=== PATIENT | male | born 1955 | race Caucasian/White ===

== ENCOUNTER → 2023-01-12 11:48 | Outpatient (CLI) | payer MEDICARE, SELFPAY ==
--- NOTE | 2023-01-12 11:53 | DI.MRI.S_ITS ---
PROCEDURE: MR SHOULDER RT WO CON INDICATIONS: Unspecified rotator cuff tear or rupture of right TECHNIQUE: Noncontrast oblique coronal T2 fast spin echo with fat saturation, oblique sagittal T1 spin echo and T2 fast spin echo with fat saturation, axial T1 spin echo and T2 fast spin echo with fat saturation through the shoulder. COMPARISON: None. FINDINGS: Image quality: There are motion artifacts. Rotator cuff: There is high-grade partial-thickness tear of the supraspinatus, infraspinatus and subscapularis tendons from the musculotendinous junction to the footprint. There may be pinhole perforation of the distal supraspinatus tendon at the footprint. There is mild teres minor tendinosis. Sagittal images demonstrate mild teres minor muscle atrophy. No deltoid muscle atrophy. Bones and bursae: No bone marrow contusions or fractures. There is moderate acromioclavicular and glenohumeral joint degeneration. The acromion demonstrates conventional anatomy, without an os acromiale. There is small glenohumeral joint effusion. Capsule and soft tissues: There is tear of the anterior superior labrum involving the biceps anchor. The intra-articular portion of the long head of the biceps tendon is not visualized, likely torn. The rotator interval appears normal, without fibrosis. The coracohumeral ligament is normal in thickness. IMPRESSION: 1. High-grade partial-thickness tear of the supraspinatus, infraspinatus and subscapularis tendons. No supraspinatus, infraspinatus or subscapularis muscle atrophy. 2. Mild teres minor tendinosis. There is mild teres minor muscle atrophy. 3. Moderate acromioclavicular and glenohumeral joint degeneration. 4. Superior labral tear involving the biceps anterior. 5. Tear of the long head of the biceps tendon. The intra-articular portion of the long head of the biceps tendon is not visualized, likely due to tendon retraction. 6. Small glenohumeral joint effusion Dictated by: David Del Cid M.D. on 01/13/2023 at 11:13 Approved by: David Del Cid M.D. on 01/13/2023 at 11:35
== END ==
PROVIDERS: Referring Provider Orthopaedic Surgery; Visit Provider Orthopaedic Surgery
DX: M75.111 Incomplete rotator cuff tear or rupture of right shoulder, not specified as traumatic (principal); M19.011 Primary osteoarthritis, right shoulder; S43.491A Other sprain of right shoulder joint, initial encounter; S46.111A Strain of muscle, fascia and tendon of long head of biceps, right arm, initial encounter; M62.511 Muscle wasting and atrophy, not elsewhere classified, right shoulder; M25.411 Effusion, right shoulder
CPT/HCPCS: 73221

== ENCOUNTER → 2023-02-28 12:52 | Outpatient (CLI) | payer MEDICARE, SELFPAY ==
--- NOTE | 2023-02-28 | DI.MRI.S_ITS ---
PROCEDURE: MR LUMBAR SPINE WO CON INDICATIONS: POST LAMINECTOMY SYNDROME TECHNIQUE: Noncontrast sagittal T1 spin echo and T2 fast echo, sagittal STIR, and T2 fast spin echo through the lumbar spine. In cases with scoliosis, additional coronal T2 fast spin echo may be performed. COMPARISON: None. FINDINGS: Image quality: Excellent. Alignment and Curvature: Trace retrolisthesis of L1 on L2. Remote multilevel lumbar fusion and posterior decompressive laminectomy. Posterior lateral andrea and pedicle screw fixation of L2 through S1, posterior laminectomy at least from L3 through S1, interbody disc spacers at L2-L3, L4-L5, and L5-S1, as well as anterior fusion at L5-S1. Bone Marrow: Marrow is of normal overall signal. No acute vertebral body compression fractures. Spinal Cord: Conus medullaris terminates at the L1 level. Visualized cord demonstrates normal signal and size. Paraspinous Soft Tissues: No paravertebral masses. T12-L1: Disc bulge with mild right paracentral disc protrusion. No significant canal stenosis. No significant foraminal stenosis. Facet hypertrophy. L1-L2: Disc height loss. Trace retrolisthesis of L1 on L2. Disc bulge. Facet hypertrophy. Mild canal stenosis. Rynb-dz-dcicodyy right foraminal stenosis. L2-L3: No canal stenosis or foraminal stenosis. L3-L4: No canal stenosis. No significant foraminal stenosis. L4-L5: No canal stenosis. No significant foraminal stenosis. L5-S1: No canal stenosis or foraminal stenosis. IMPRESSION: 1. Extensive multilevel lumbar fusion and posterior decompression with no canal stenosis or significant foraminal stenosis at the surgical levels. 2. At L1-L2, the level above the fusion, there is mild canal stenosis. 3. There is a mild right paracentral disc protrusion at T12-L1 of uncertain clinical significance. 4. Facet arthropathy at T12-L1 and L1-L2. Dictated by: Stephen Sow M.D. on 02/28/2023 at 15:00 Approved by: Stephen Sow M.D. on 02/28/2023 at 15:14
--- NOTE | 2023-02-28 | DI.MRI.S_ITS ---
PROCEDURE: MR THORACIC SPINE WO CON INDICATIONS: POST LAMINECTOMY SYNDROME TECHNIQUE: Noncontrast sagittal T1 spine echo and T2 fast spin echo, sagittal STIR, and T2 fast spin echo through the thoracic spine. COMPARISON: [facility], , MR LUMBAR SPINE WO CON, 02/28/2023, 13:01. FINDINGS: Image quality: Excellent. Alignment and Curvature: Accentuated thoracic kyphosis is seen. No focal AP alignment abnormality is seen. Bone Marrow: Marrow is of normal overall signal. No acute vertebral body compression fractures. Several midthoracic anterior wedge deformities are seen, without acute features. The most prominent of these is seen at T8, with approximately 40% loss of height anteriorly. Scattered foci are seen, which are hyperintense on T1-weighted and T2-weighted imaging, which are most consistent with benign vertebral body hemangiomas. Spinal Cord: Visualized spinal cord is normal in size and signal. Paraspinous Soft Tissues: No paravertebral masses. Miscellaneous: At the T6-T7 level, there is a central/right disc protrusion, as on series 9, image 27 and on series 6, image 8. Minimal central canal narrowing is seen. No neural foraminal narrowing can be seen at this level. Mild central canal narrowing can be seen at T7-T8. No neural foraminal narrowing is seen. Minimal central canal narrowing is seen at T8-T9. At T9-T10, there is a mild central/left disc protrusion, with mild central canal narrowing and minimal mass effect upon the ventral spinal cord. At T10-T11, there is mild generalized disc bulge seen, with a mild central disc protrusion. Mild central canal narrowing is seen at this level. Moderate neural foraminal narrowing can be seen at this level. At T11-T12, there is no significant central canal narrowing. Moderate bilateral neural foraminal narrowing can be seen. At T12-L1, there is moderate generalized disc bulge, with a central disc protrusion. Moderate central canal narrowing is seen. Moderate bilateral neural foraminal narrowing is seen. Milder degenerative changes are seen elsewhere. IMPRESSION: Multiple levels of thoracic spine degenerative change can be seen, which are worst inferiorly. Chronic, remote mode midthoracic anterior wedge deformities are seen, with associated accentuated thoracic kyphosis. Dictated by: Ayan Sherwood M.D. on 02/28/2023 at 17:33 Approved by: Ayan Sherwood M.D. on 02/28/2023 at 17:37
== END ==
PROVIDERS: Referring Provider Physician Assistant; Visit Provider Physician Assistant
DX: M96.1 Postlaminectomy syndrome, not elsewhere classified (principal); M48.061 Spinal stenosis, lumbar region without neurogenic claudication; M51.25 Other intervertebral disc displacement, thoracolumbar region; M47.815 Spondylosis without myelopathy or radiculopathy, thoracolumbar region; M47.816 Spondylosis without myelopathy or radiculopathy, lumbar region; Z98.1 Arthrodesis status
CPT/HCPCS: 72146; 72148

== ENCOUNTER → 2024-07-12 08:49 | Outpatient (CLI) | payer MEDICARE, SELFPAY ==
--- NOTE | 2024-07-12 08:52 | DI.RAD.S_ITS ---
PROCEDURE: XR THORACIC SPINE 2V INDICATIONS: RIB PAIN TECHNIQUE: 2 views of the thoracic spine were acquired. COMPARISON: None. FINDINGS: Bones: Chronic appearing compression deformity of T8 through T12, without endplate retropulsion. No dislocations. No suspicious bony lesions. 12 pairs of ribs are noted, and appear intact where visualized. Diffuse idiopathic skeletal hyperostosis. Moderate, multilevel degenerative disc disease. Soft tissues: No paravertebral stripe thickening. IMPRESSION: Moderate, multilevel degenerative disc disease. Chronic appearing compression deformities of the lower thoracic spine. Dictated by: Yo Goodwin M.D. on 07/12/2024 at 12:05 Approved by: Yo Goodwin M.D. on 07/12/2024 at 13:05
--- NOTE | 2024-07-12 08:52 | DI.RAD.S_ITS ---
PROCEDURE: XR LUMBAR SPINE MIN 4V INDICATIONS: BACK PAIN TECHNIQUE: 5 views of the lumbar spine acquired, including oblique views. COMPARISON: [facility], MR, MR LUMBAR SPINE WO CON, 02/28/2023, 13:01. FINDINGS: Bones: 5 nonrib-bearing vertebrae are present. Posterior and interbody surgical fusion of L2 through S1. No hardware complication. Grade 1 retrolisthesis of L1 on L2. Moderate to severe disc height loss at the thoracolumbar levels. Vertebral body height loss of T11 and T12. Soft tissues: Overlying bowel gas pattern is normal. No suspicious soft tissue calcifications. IMPRESSION: Posterior and interbody surgical fusion of the lumbosacral spine, without hardware complication. Dictated by: Yo Goodwin M.D. on 07/12/2024 at 11:55 Approved by: Yo Goodwin M.D. on 07/12/2024 at 12:05
== END ==
PROVIDERS: Referring Provider Physical Medicine & Rehabilitation; Visit Provider Physical Medicine & Rehabilitation
DX: M51.34 Other intervertebral disc degeneration, thoracic region (principal); M43.8X4 Other specified deforming dorsopathies, thoracic region; M43.16 Spondylolisthesis, lumbar region; M53.3 Sacrococcygeal disorders, not elsewhere classified; R07.81 Pleurodynia; M54.9 Dorsalgia, unspecified; Z98.1 Arthrodesis status; Z98.890 Other specified postprocedural states
CPT/HCPCS: 72072; 72110; 99214

== ENCOUNTER 2024-08-03 10:33 | Outpatient (CLI) | payer MEDICARE, SELFPAY ==
[2024-08-03] VITALS (8 sets, daily range): BP systolic 131–172; BP diastolic 60–79; PULSE 63–72; RESP 12–23; TEMP 36.7; O2SAT 95–98
--- NOTE | 2024-08-03 10:34 | DI.RAD.S_ITS ---
PROCEDURE: PAIN SI JOINT INJECTION [place] INDICATIONS: Bilateral SI joint injections COMPARISON: None. FINDINGS/IMPRESSION: Fluoroscopic spot filming was performed to verify placement of spinal needles at the bilateral sacroiliac joints, as labeled on the films. Appropriate location(s) of the needle tip(s) was confirmed by injection of iodinated contrast. Dictated by: Erasto Beltran M.D. on 08/03/2024 at 15:11 Approved by: Erasto Beltran M.D. on 08/03/2024 at 15:13
[2024-08-03] MEDS: MIDAZOLAM 2 MG/2 ML VIAL IV (12:06)
[2024-08-03] MEDS: BUPIVACAINE 0.5% (PF) 10 ML VIAL 5 ML INJ (12:12)
[2024-08-03] MEDS: BETAMETHASONE 30 MG/5 ML MDV 12 MG INJ (12:12)
[2024-08-03] MEDS: iopamidoL 15 ML VIAL 3 ML INJ (12:13)
--- NOTE | 2024-08-03 12:27 | P.PCN_ITS ---
Date/Time/Diagnoses Date of procedure: 08/03/24 Time of procedure: 12:28 Pre-procedure diagnosis: Sacroiliac joint pain/DJD Post-procedure diagnosis: same Procedure Notes Procedure: Fluoroscopic guided contrast controlled bilateral sacroiliac joint injection Indications: Ronnie is referred by Dr. Kelley for treatment of bilateral sacroiliac joint DJD Physician: Marcello Valdez Total Fluoroscopy time (seconds): 19 Total sedation minutes: 20 Complications: none Procedure in detail & Post-procedure care: Description of procedure Fluoroscopic guided, contrast controlled bilateral sacroiliac joint injection Following review of allergies and review of potential side effects and complications, including, but not necessarily limited to, infection, allergic reaction, local tissue breakdown, temporary as well as permanent nerve injury, paralysis, stroke and possible , the patient indicated that they understood and agreed to proceed. An informed consent was signed by the patient, witnessed by a nurse, and placed in the patient's chart. Additionally, other treatment options including modalities, medications, and physical therapy were reviewed with the patient. After review of previous anaesthesic history and IV conscious sedation the patient was deemed safe to proceed with today?s procedure with IV conscious sedation as ASA class II designation. Safety time-out was performed to confirm patient ID, procedure to be performed and site of procedure. IV sedation was accomplished with a combination of 2mg Versed were administered by the RN after DO order, titrated to patient comfort during the course of the procedure while the patient remained responsive to all verbal commands In the prone position following sterile prep and drape of the pelvic region, the hyper lucency on in the inferior aspect of the sacroiliac joint was identified fluoroscopically the skin was anesthetized be a 25 gauge 1.5 inch needle with approximately 2cc of 1% lidocaine solution. At this point, a 22 gauge 3 in sp inal needle was atraumatically introduced and advanced under fluoroscopic guidance into the inferior aspect of the right sacroiliac joint. Following negative aspiration, approximately 0.3cc of Isovue-300 was injected confirming intra-articular placement without vascular uptake. Radiographic data, including multiple fluoroscopic views of the pelvis, reveals a spinal needle in the sacroiliac joint hyper lucent zone. Subsequent view show flow contrast tear superiorly and inferiorly within the joint capsule without vascular intrathecal uptake. At this point a total of 1cc of 0.5% Marcaine was combined with 1cc of 6mg of betamethasone was injected without incident. Attention was then refocused the left sacroiliac joint where the procedure was replicated. The procedure tolerated the procedure well without signs or symptoms of complications prior to transfer to the recovery area continued monitoring without incident. The patient was then transferred to the recovery area with a bur observed for an appropriate time after the injection. The patient reverted a vas score of 7 prior to the procedure and post-procedure vas of 1. Postop instructions The patient was provided with a pain like to continue to record the patient's response to the target specific procedure prior to the patient's follow-up visit with the referring physician. Additionally, specific post injection care instructions and a contact number to our office were provided if concerns arise regarding the possible complications associated with procedure are suspected.
== END 2024-08-03 12:36 | disposition home or self-care (01) ==
PROVIDERS: PCP Family Medicine; Referring Provider Physical Medicine & Rehabilitation; Visit Provider Physical Medicine & Rehabilitation
DX: M53.3 Sacrococcygeal disorders, not elsewhere classified (principal); Z98.890 Other specified postprocedural states
CPT/HCPCS: 27096; 99152; J0702; J2250

== ENCOUNTER 2024-10-14 14:26 | Outpatient (CLI) | payer MEDICARE, SELFPAY ==
[2024-10-14] VITALS (9 sets, daily range): BP systolic 116–156; BP diastolic 57–84; PULSE 60–73; RESP 14–16; O2SAT 96–99
[2024-10-14] MEDS: MIDAZOLAM 2 MG/2 ML VIAL IV (16:09)
[2024-10-14] MEDS: iopamidoL 15 ML VIAL 3 ML INJ (16:15)
[2024-10-14] MEDS: DEXAMETHASONE 10 MG/ML VIAL 20 MG INJ (16:15)
[2024-10-14] MEDS: BETAMETHASONE 30 MG/5 ML MDV 12 MG INJ (16:15)
[2024-10-14] MEDS: BUPIVACAINE 0.25% (PF) VIAL 2 ML INJ (16:15)
--- NOTE | 2024-10-14 16:28 | PM.PROC.IR.1 ---
Date/Time/Diagnoses Date of procedure: 10/14/24 Time of procedure: 16:28 Pre-procedure diagnosis: 1. MULTILEVEL SPINAL STENOSIS 2. POST FUSION SYNDROME Post-procedure diagnosis: same Procedure Notes Procedure: 1. FLUOROSCOPICALLY GUIDED CONTRAST CONTROLLED CAUDAL EPIDURAL STEROID INJECTION, Indications: Maria Elena is referred by Dr. Kelley for treatment of Multilevel Stenosis Physician: Marcello Valdez Total Fluoroscopy time (seconds): 9 Total sedation minutes: 16 Complications: none Procedure in detail & Post-procedure care: FINDINGS Multilevel Stenosis S/p Lami/Fusion Syndrome DESCRIPTION OF PROCEDURE Fluoroscopically guided, contrast controlled caudal epidural steroid injection with Conscious Sedation Following review of allergy and review of potential side effects and complications, including but not necessarily limited to infection, allergic reaction, local tissue breakdown, temporary or permanent nerve injury, stroke, paralysis, and possible , the patient indicated that they understood and agreed to proceed. An informed consent document was signed by the patient, witnessed by a nurse, and placed in the patient's chart. Additionally, other treatment options including medications, modalities, and physical therapy were reviewed with the patient. After review of previous anaesthesic history and IV conscious sedation the patient was deemed safe to proceed with today?s procedure with IV conscious sedation as ASA class II designation. Safety time-out was performed to confirm patient ID, procedure to be performed and site of procedure. IV sedation was accomplished with a combination of 2mg of Versed administered by the RN after DO order, titrated to patient comfort during the course of the procedure while the patient remained responsive to all verbal commands In the prone position, following sterile prep and drape of the lumbar region, the sacral hiatus was identified fluoroscopically. The skin was anesthetized via a 25-gauge, 1.5-inch needle with approximately 2cc of 1% lidocaine solution. At this point, a 25-gauge, 3inch needle was atraumatically introduced and advanced under fluoroscopic guidance to the corresponding sacral hiatus and entering the sacral canal. Following negative aspiration, injection of approximately 0.3cc of Isovue 300 confirmed interarticular placement without vascular uptake. Radiological data, including multiple fluoroscopic views of the lumbosacral spine, reveal a spinal needle in the sacral canal through the sacral hiatus. Subsequent views show flow of contrast material superiorly and inferiorly in the sacral canal without vascular or intrathecal uptake. At this point, a total of 6cc including 2cc or 12mg of betamethasone, 2cc or 20mg of dexamethasone and 2cc of 1% lidocaine solution was injected without complication. The patient tolerated the procedure well without signs or symptoms of complications prior to transfer to the recovery area continued monitoring without incident. The patient was then transferred to the recovery area where they were observed for an appropriate period of time after the injection. The patient reported a VAS score of 8 prior to the procedure and a post-procedure VAS of 1. POST OP INSTRUCTIONS The patient was provided a Pain Log to continue to record their response to the target-specific procedure prior to their follow-up visit with the referring physician. Additionally, specific post-injection care instructions and a contact number to our office were provided if concerns arise regarding possible complications associated with the procedure are suspected.
== END 2024-10-14 16:48 | disposition home or self-care (01) ==
PROVIDERS: PCP Family Medicine; Referring Provider Physical Medicine & Rehabilitation; Visit Provider Physical Medicine & Rehabilitation
DX: M48.061 Spinal stenosis, lumbar region without neurogenic claudication (principal); M96.1 Postlaminectomy syndrome, not elsewhere classified; Z98.1 Arthrodesis status
CPT/HCPCS: 62323; 99152; J0702; J1100; J2250; J3490

== ENCOUNTER 2024-10-28 13:24 | Outpatient (CLI) | payer MEDICARE, SELFPAY ==
[2024-10-28] VITALS (8 sets, daily range): BP systolic 148–190; BP diastolic 65–86; PULSE 66–81; RESP 15–21; O2SAT 97–98
[2024-10-28] MEDS: MIDAZOLAM 2 MG/2 ML VIAL IV (13:47)
[2024-10-28] MEDS: methylPREDNISolone acetate 80 MG/ML VIAL INJ (13:52)
[2024-10-28] MEDS: DEXAMETHASONE 10 MG/ML VIAL INJ (13:52)
[2024-10-28] MEDS: iopamidoL 15 ML VIAL 3 ML INJ (13:53)
[2024-10-28] MEDS: BETAMETHASONE 30 MG/5 ML MDV 12 MG INJ (13:53)
[2024-10-28] MEDS: BUPIVACAINE 0.25% (PF) VIAL 2 ML INJ (13:54)
--- NOTE | 2024-10-28 14:05 | P.PCN_ITS ---
Date/Time/Diagnoses Date of procedure: 10/28/24 Time of procedure: 14:05 Pre-procedure diagnosis: 1. HNP WITH RADICULAR FEATURES, 2. MULTILEVEL CENTRAL STENOSIS, Post-procedure diagnosis: same Procedure Notes Procedure: 1. FLUOROSCOPICALLY GUIDED CONTRAST CONTROLLED INTERLAMINAR EPIDURAL STEROID INJECTION - L5/S1 Indications: Maria Elena is referred by Dr. Kelley for treatment of Bilateral Foraminal Stenosis L>R LE symptoms. Physician: Marcello Valdez Total Fluoroscopy time (seconds): 14 Total sedation minutes: 13 Complications: none Procedure in detail & Post-procedure care: FINDINGS Multilevel Central Spinal Stenosis with Nerve Root Compression DESCRIPTION OF PROCEDURE Fluoroscopically guided, contrast-controlled L5/S1 translaminar epidural steroid injection. Following review of allergy and review of potential side effects and complications, including, but not necessarily limited to, infection, allergic reaction, local tissue breakdown, temporary as well as permanent nerve injury, paralysis, stroke and possible , the patient indicated that the patient understood and agreed to proceed. An informed consent document was signed by the patient, witnessed by a nurse, and placed in the patient's chart. Additionally, other treatment options including modalities, medications, and physical therapy were reviewed with the patient. After review of previous anaesthesic history and IV conscious sedation the patient was deemed safe to proceed with today?s procedure with IV conscious sedation as ASA class II designation. Safety time-out was performed to confirm patient ID, procedure to be performed and site of procedure. IV sedation was accomplished with a combination of 2mg of Versed administered by the RN after DO order, titrated to patient comfort during the course of the procedure while the patient remained responsive to all verbal commands. In the prone position, following sterile prep and drape of the lumbar region, the L5/S1 translaminar space was identified fluoroscopically. The skin was anesthetized via a 25-gauge, 1.5-inch needle with 1% lidocaine solution. At this point, a 22-gauge short bevel spinal needle was atraumatically introduced and advanced under fluoroscopic guidance into the region of the L5/S1 translaminar space. Depth was confirmed on lateral view. Radiological data, including multiple fluoroscopic views of the lumbar spine, reveal a spinal needle at the L5/S1 translaminar space. Lateral views then show placement of the needle in the epidural space. Subsequent views show contrast material flowing superiorly and inferiorly in the epidural space. No vascular or intrathecal uptake is observed. At this point, using loss of resistance technique with saline and air, the epidural space was entered. This was confirmed following negative aspiration with injection of approximately 1.5cc of Isovue 200, showing excellent epidural flow without vascular or intrathecal uptake. At this point, 1 cc of 1% lid ocaine solution combined with 3cc or 10mg of dexamethasone. 80 depo medrol and 6mg of betamethasone was injected without incident. The patent tolerated the procedure without signs of symptoms of complications prior to transfer to the recovery area for further monitoring. The patient was then transferred to the recovery area where they were observed for an appropriate period of time after the injection. The patient reported a VAS score of 8 prior to the procedure and a post-procedure VAS of 1. POST OP INSTRUCTIONS The patient was provided a Pain Log to continue to record their response to the target-specific procedure prior to follow-up visit with their referring physician. Additionally, specific post-injection care instructions and a contact number to our office were provided if concerns arise regarding possible complications associated with the procedure are suspected.
== END 2024-10-28 14:20 | disposition home or self-care (01) ==
PROVIDERS: PCP Family Medicine; Referring Provider Family Medicine; Visit Provider Physical Medicine & Rehabilitation
DX: M51.17 Intervertebral disc disorders with radiculopathy, lumbosacral region (principal); M48.07 Spinal stenosis, lumbosacral region
CPT/HCPCS: 62323; 99152; J0702; J1010; J1100; J2250; J3490